=== PATIENT | female | born 1965 | race Hispanic/Latino ===

== ENCOUNTER 2018-02-15 19:24 | Inpatient (IN) | payer OTHER ==
--- NOTE | 2018-02-15 19:45 | Emergency Department Report ---
ED Palpitations HPI - General Chief Complaint: Arrhythmia/Palpitations Stated Complaint: CHEST PAIN Time Seen by Provider: 02/15/18 19:27 Source: patient, EMS (ems notes not available at time of chart dictation), RN notes reviewed Limitations: No Limitations - History of Present Illness Initial Comments: This is a 52-year-old female who is previously known to this provider. Primary care doctor is at [facility]. Past medical history includes anemia, celiac disease , recent history of hypocalcemia, hypokalemia. Patient was sent to the ER from outpatient [facility] for evaluation of resolved wide-complex tachycardia. Patient had been complaining of generalized weakness, fatigue, and feeling lightheaded. At the outpatient facility she was found to be in a wide-complex tachycardia, presumably ventricular tachycardia, and was shocked/cardioverted. Afterwards, she has no symptoms. She currently denies headache, neck pain, chest pain, abdominal pain and shortness of breath. Her EKG currently shows sinus with a right bundle-branch block, which was redemonstrated on prehospital EKG, and her post-cardioversion EKG. The case was discussed with our journeyman pipefitter, Dr. Philip, who indicated he would see the patient as a consult in the morning. Case was also discussed with physician for [facility], Dr. Philip, who authorized admission to this hospital for further evaluation of resolved wide complex tachycardia. MD Complaint: rapid heart beat, "heart racing", "skipped beats", palpitations, irregular heart beat -: Sudden Associated Symptoms: shortness of breath, syncope, near-syncope, nausea/vomiting , anxiety, other. denies: chest pain, cough, parasthesias Treatments Prior to Arrival: cardioversion - Related Data Allergies Allergy/AdvReac Type Severity Reaction Status Date / Time amoxicillin Allergy Anaphylaxis Verified 02/15/18 20:07 clavulanic acid Allergy Shortness Verified 02/15/18 20:07 [From Augmentin] of Breath tetracycline Allergy Rash Verified 02/15/18 20:07 erythromycin base AdvReac Dizziness Verified 02/15/18 20:07 shellfish derived AdvReac Dizziness Verified 02/15/18 20:07 Sulfa (Sulfonamide AdvReac Dizziness Verified 02/15/18 20:07 Antibiotics) ED Review of Systems ROS: Stated complaint: CHEST PAIN Other details as noted in HPI Constitutional: malaise. denies: fever Eyes: denies: eye discharge ENT: denies: epistaxis Respiratory: denies: cough Cardiovascular: palpitations Gastrointestinal: denies: vomiting Genitourinary: denies: dysuria Musculoskeletal: denies: arthralgia Skin: denies: lesions Neurological: weakness Psychiatric: anxiety ED Physical Exam - General General appearance: alert, in no apparent distress - Head Head exam: Present: atraumatic, normocephalic - Eye Eye exam: Present: normal appearance, EOMI. Absent: nystagmus - ENT ENT exam: Present: normal exam, normal orophraynx, mucous membranes moist - Neck Neck exam: Present: normal inspection, full ROM - Respiratory Respiratory exam: Present: normal lung sounds bilaterally. Absent: respiratory distress - Cardiovascular Cardiovascular Exam: Present: regular rate, normal rhythm, systolic murmur. Absent: diastolic murmur, rubs, gallop - GI/Abdominal GI/Abdominal exam: Present: soft, normal bowel sounds. Absent: distended, tenderness, guarding, rebound, rigid, pulsatile mass - Extremities Exam Extremities exam: Present: normal inspection, full ROM, normal capillary refill. Absent: pedal edema, joint swelling, calf tenderness - Back Exam Back exam: Present: normal inspection, full ROM. Absent: tenderness, CVA tenderness (R), paraspinal tenderness, vertebral tenderness - Neurological Exam Neurological exam: Present: alert, oriented X3, CN II-XII intact, other ( Extraocular movements intact. Tongue midline. No facial droop. Facial sensation intact to light touch in the V1, V2, V3 distribution bilaterally. 5 and 5 strength in 4 extremities.. Sensation is intact to light touch in 4 extremities.). Absent: motor sensory deficit - Psychiatric Psychiatric exam: Present: anxious - Skin Skin exam: Present: warm, dry, intact, normal color. Absent: rash ED Course Vital Signs 02/15/18 02/15/18 02/15/18 19:40 19:50 19:53 Temperature 98.1 F Pulse Rate 82 75 74 Respiratory 29 H 18 19 Rate Blood Pressure 93/57 96/53 Blood Pressure [Left] O2 Sat by Pulse 98 98 Oximetry 02/15/18 20:55 Temperature 98 F Pulse Rate 77 Respiratory 24 Rate Blood Pressure Blood Pressure 97/47 [Left] O2 Sat by Pulse 98 Oximetry - Reevaluation(s) Reevaluation #1: 02/15/18 21:37 Dr. Christian accepted the patient to the medical service. ED Medical Decision Making - Lab Data Result diagrams: 02/15/18 19:55 02/15/18 19:55 Vital Signs 02/15/18 02/15/18 02/15/18 19:40 19:50 19:53 Temperature 98.1 F Pulse Rate 82 75 74 Respiratory 29 H 18 19 Rate Blood Pressure 93/57 96/53 O2 Sat by Pulse 98 98 Oximetry Lab Results 02/15/18 02/15/18 02/15/18 Range/Units 19:55 19:55 19:55 WBC 5.0 (4.5-11.0) K/mm3 RBC 3.36 L (3.65-5.03) M/mm3 Hgb 8.1 L (10.1-14.3) gm/dl Hct 27.2 L (30.3-42.9) % MCV 81 (79-97) fl MCH 24 L (28-32) pg MCHC 30 (30-34) % RDW 21.4 H (13.2-15.2) % Plt Count 222 (140-440) K/mm3 Lymph % (Auto) 13.4 (13.4-35.0) % [place] % (Auto) 6.9 (0.0-7.3) % Eos % (Auto) 0.6 (0.0-4.3) % Baso % (Auto) 1.1 (0.0-1.8) % Lymph # 0.7 L (1.2-5.4) K/mm3 [place] # 0.3 (0.0-0.8) K/mm3 Eos # 0.0 (0.0-0.4) K/mm3 Baso # 0.1 (0.0-0.1) K/mm3 Seg Neutrophils % 78.0 H (40.0-70.0) % Seg Neutrophils # 3.9 (1.8-7.7) K/mm3 PT 13.5 (12.2-14.9) Sec. INR 0.98 (0.87-1.13) Sodium 136 L (137-145) mmol/L Potassium 4.6 (3.6-5.0) mmol/L Chloride 105.3 (98-107) mmol/L Carbon Dioxide 20 L (22-30) mmol/L Anion Gap 15 mmol/L BUN 13 (7-17) mg/dL Creatinine 0.4 L (0.7-1.2) mg/dL Estimated GFR > 60 ml/min BUN/Creatinine Ratio 33 % Glucose 104 H (65-100) mg/dL Calcium 8.7 (8.4-10.2) mg/dL Magnesium (1.7-2.3) mg/dL Total Bilirubin 0.20 (0.1-1.2) mg/dL AST 154 H (5-40) units/L ALT 90 H (7-56) units/L Alkaline Phosphatase 127 (35-129) units/L Troponin T (0.00-0.029) ng/mL Total Protein 5.6 L (6.3-8.2) g/dL Albumin 2.9 L (3.9-5) g/dL Albumin/Globulin Ratio 1.1 % TSH (0.270-4.200) mlU/mL Free T4 (0.76-1.46) ng/dL 02/15/18 02/15/18 02/15/18 Range/Units 19:55 19:55 19:55 WBC (4.5-11.0) K/mm3 RBC (3.65-5.03) M/mm3 Hgb (10.1-14.3) gm/dl Hct (30.3-42.9) % MCV (79-97) fl MCH (28-32) pg MCHC (30-34) % RDW (13.2-15.2) % Plt Count (140-440) K/mm3 Lymph % (Auto) (13.4-35.0) % [place] % (Auto) (0.0-7.3) % Eos % (Auto) (0.0-4.3) % Baso % (Auto) (0.0-1.8) % Lymph # (1.2-5.4) K/mm3 [place] # (0.0-0.8) K/mm3 Eos # (0.0-0.4) K/mm3 Baso # (0.0-0.1) K/mm3 Seg Neutrophils % (40.0-70.0) % Seg Neutrophils # (1.8-7.7) K/mm3 PT (12.2-14.9) Sec. INR (0.87-1.13) Sodium (137-145) mmol/L Potassium (3.6-5.0) mmol/L Chloride (98-107) mmol/L Carbon Dioxide (22-30) mmol/L Anion Gap mmol/L BUN (7-17) mg/dL Creatinine (0.7-1.2) mg/dL Estimated GFR ml/min BUN/Creatinine Ratio % Glucose (65-100) mg/dL Calcium (8.4-10.2) mg/dL Magnesium 1.90 (1.7-2.3) mg/dL Total Bilirubin (0.1-1.2) mg/dL AST (5-40) units/L ALT (7-56) units/L Alkaline Phosphatase (35-129) units/L Troponin T < 0.010 (0.00-0.029) ng/mL Total Protein (6.3-8.2) g/dL Albumin (3.9-5) g/dL Albumin/Globulin Ratio % TSH 6.470 H (0.270-4.200) mlU/mL Free T4 0.91 (0.76-1.46) ng/dL - EKG Data -: EKG Interpreted by Me EKG shows normal: sinus rhythm Rate: normal - EKG Data Interpretation: unchanged when compared t (earlier on today) 02/15/18 20:48 Sinus, 72 bpm, left axis deviation, right bundle branch block, QTC prolonged, abnormal EKG, not consistent with a stabbing - Radiology Data Radiology results: image reviewed interpreted by me: X-ray the chest is negative for acute disease - Medical Decision Making Differential diagnosis, including but not limited to: Anemia, acute coronary syndrome, structural cardiac disease, electrolyte derangement, pneumonia, urinary tract infection, thyroid disease Assessment and plan: 52-year-old female with a resolved wide-complex tachycardia. She is afebrile with reassuring vital signs. Patient very slight of stature. Laboratory studies so far unremarkable. Patient will require admission for further evaluation of transient wide-complex tachycardia. Hospital physician is paged to arrange admission. Critical care attestation.: If time is entered above; I have spent that time in minutes in the direct care of this critically ill patient, excluding procedure time. ED Disposition Clinical Impression: Wide-complex tachycardia Disposition: DC-09 OP ADMIT IP TO THIS HOSP Is pt being admited?: Yes Does the pt Need Aspirin: Yes Condition: Good Referrals: PRIMARY CARE, [Primary Care Provider] - 3-5 Days
[2018-02-15 20:15] LABS: Basophils # (Auto) 0.1 K/mm3 (0.0-0.1); Basophils % (Auto) 1.1 % (0.0-1.8); Eosinophils % (Auto) 0.6 % (0.0-4.3); Hematocrit 27.2 % (30.3-42.9); Hemoglobin 8.1 gm/dl (10.1-14.3); Lymphocytes # (Auto) 0.7 K/mm3 (1.2-5.4); Lymphocytes % (Auto) 13.4 % (13.4-35.0); Mean Corpuscular HGB Conc 30 % (30-34); Mean Corpuscular Volume 81 fl (79-97); Monocytes # (Auto) 0.3 K/mm3 (0.0-0.8); Monocytes % (Auto) 6.9 % (0.0-7.3); Platelet Count 222 K/mm3 (140-440); Red Blood Count 3.36 M/mm3 (3.65-5.03)
[2018-02-15 20:17] LABS: INR 0.98 (0.87-1.13)
[2018-02-15 20:20] LABS: Mean Corpuscular Hemoglobin 24 pg (28-32); Red Cell Distribution Width 21.4 % (13.2-15.2)
[2018-02-15 20:21] LABS: Alanine Aminotransferase 90 units/L (7-56); Albumin 2.9 g/dL (3.9-5); BUN/Creatinine Ratio 33; Blood Urea Nitrogen 13 mg/dL (7-17); Calcium 8.7 mg/dL (8.4-10.2); Hemolysis Index 6
[2018-02-15] MEDS ORDERED: BABY ASPIRIN PO ONE (20:50)
--- NOTE | 2018-02-15 21:20 | XRay Report ---
FINAL REPORT EXAM: XR CHEST 1V AP HISTORY: Lightheadedness/Dizziness TECHNIQUE: Single, portable chest x-ray. PRIORS: None. FINDINGS: Mild cardiomegaly and surgical clip projected over AP window. Lungs are hyperinflated, without significant vascular congestion. No focal consolidation or apparent pneumothorax. IMPRESSION: 1. Cardiomegaly. 2. Hyperinflation. No acute consolidation.
[2018-02-15] MEDS ORDERED: NACL 0.9% 500 ML 500 ML IV ONE (21:37)
[2018-02-15 22:28] LABS: Bilirubin,Urine NEG (Negative); Blood,Urine NEG (Negative); Color,Urine Straw (Yellow); Protein,Urine <15 mg/dL mg/dL (Negative); Urobilinogen,Urine < 2.0 mg/dL (<2.0)
[2018-02-15 22:34] LABS: Amphetamine Screen,Urine PRESUMPTIVE NEGATIVE; Cannabinoid Screen,Urine PRESUMPTIVE NEGATIVE; Cocaine Screen,Urine PRESUMPTIVE NEGATIVE; Methadone Screen,Urine PRESUMPTIVE NEGATIVE; Opiate Screen,Urine PRESUMPTIVE NEGATIVE
[2018-02-15 22:46] LABS: Benzodiazepines Screen,Urine PRESUMPTIVE POSITIVE
[2018-02-15] MEDS ORDERED: SODIUM CHLORIDE FLUSH SYRINGE 10 ML IV PRN (22:58)
[2018-02-15] MEDS ORDERED: TYLENOL PO PRN (22:58)
[2018-02-15] MEDS ORDERED: PERCOCET 5/325 PO PRN (22:58)
[2018-02-15] MEDS ORDERED: ZOFRAN IV PRN (22:58)
--- NOTE | 2018-02-15 23:03 | History and Physical Report ---
History of Present Illness Date of examination: 02/15/18 History of present illness: 52-year-old woman with a history of tetralogy of flow status post repair, pulmonary hypertension, pulmonary valve stenosis, celiac disease comes to emergency room for evaluation of dizziness. Patient wanted to go to the restroom, she felt dizzy, she sat down. She attempted to go to the bathroom again, and bathroom she felt dizzy, started having palpitation while in the bathroom, she has to lay on the bathroom floor for about 5 minutes. She got out of the bathroom and her son drove her to the [place] facility, all when she got this year symptoms started again, she was found to be in V. tach and was shocked once. She is transferred from [place] to this emergency room. Admits to associated chest pain while she was having the palpitation Review of systems Constitutional: no weight loss, chills Ears, eyes, nose, mouth and throat: no nasal congestion, no nasal discharge, no sinus pressure, no vision change, no red eye. Neck: No neck pain or rigidity. Cardiovascular: +chest pain, palpitations Respiratory: No cough, shortness of breath Gastrointestinal: no abdominal pain, hematochezia Genitourinary : no dysuria, frequency , no hematuria Musculoskeletal: no joint swelling or muscle ache Integumentary: no rash, no pruritis Neurological: no parathesias, no numbness, no focal weakness Endocrine: no cold or heat intolerance, no polyuria or polydipsia Hematologic/Lymphatic: no easy bruising, no easy bleeding, no gland swelling Allergic/Immunologic: no urticaria, no angioedema. PAST MEDICAL HISTORY: tetralogy of fallot status post repair, pulmonary hypertension, pulmonary valve stenosis, celiac disease PAST SURGICAL HISTORY: Repair of tetralogy of fallot, cholecystectomy SOCIAL HISTORY: Denies alcohol, tobacco, drugs FAMILY HISTORY: Hypertension Medications and Allergies Allergies Allergy/AdvReac Type Severity Reaction Status Date / Time amoxicillin Allergy Anaphylaxis Verified 02/15/18 20:07 clavulanic acid Allergy Shortness Verified 02/15/18 20:07 [From Augmentin] of Breath tetracycline Allergy Rash Verified 02/15/18 20:07 erythromycin base AdvReac Dizziness Verified 02/15/18 20:07 shellfish derived AdvReac Dizziness Verified 02/15/18 20:07 Sulfa (Sulfonamide AdvReac Dizziness Verified 02/15/18 20:07 Antibiotics) Home Medications Medication Instructions Recorded Confirmed Last Taken Type Iron 18 mg PO TID 02/15/18 02/15/18 Unknown History Potassium Chloride [K-Dur] 10 meq PO QDAY 02/15/18 02/15/18 Unknown History Exam - Physical Exam Narrative exam: Gen. appearance: Patient lying in bed, no apparent distress HEENT: Normocephalic, atraumatic, pupils equally round and reactive to light, extraocular movement intact, and no sclericterus,. No JVD or thyromegaly or nodule,neck supple, no carotid bruit ,mucous membranes moist, no exudate or erythema Heart: S1, S2, regular rate and rhythm Lungs: Clear to auscultation bilaterally, breathing comfortable Abdomen: Positive bowel sounds, nontender, nondistended, no organomegaly Extremity: No edema, cyanosis, clubbing Skin: No rash, nodules, warm, dry Neuro: Oriented 3, cranial nerves II-12 intact, speech is fluent, motor and sensory intact - Constitutional Vitals: Temp Pulse Resp BP Pulse Ox 98 F 66 21 96/52 98 02/15/18 20:55 02/15/18 22:06 02/15/18 21:00 02/15/18 22:06 02/15/18 21:00 Results - Labs CBC & Chem 7: 02/15/18 19:55 02/15/18 19:55 Labs: Abnormal lab results 02/15/18 02/15/18 02/15/18 Range/Units 19:55 19:55 19:55 RBC 3.36 L (3.65-5.03) M/mm3 Hgb 8.1 L (10.1-14.3) gm/dl Hct 27.2 L (30.3-42.9) % MCH 24 L (28-32) pg RDW 21.4 H (13.2-15.2) % Lymph # 0.7 L (1.2-5.4) K/mm3 Seg Neutrophils % 78.0 H (40.0-70.0) % Sodium 136 L (137-145) mmol/L Carbon Dioxide 20 L (22-30) mmol/L Creatinine 0.4 L (0.7-1.2) mg/dL Glucose 104 H (65-100) mg/dL AST 154 H (5-40) units/L ALT 90 H (7-56) units/L Total Protein 5.6 L (6.3-8.2) g/dL Albumin 2.9 L (3.9-5) g/dL TSH 6.470 H (0.270-4.200) mlU/mL - Imaging and Cardiology EKG: image reviewed Chest x-ray: image reviewed Assessment and Plan Assessment Ventricular tachycardia History of tetralogy of fallot Pulmonary hypertension Pulmonary valve stenosis Celiac disease Plan Admit to medicine Check cardiac enzymes, echo, consult cardiology DVT prophylaxis
[2018-02-15 23:28] LABS: Creatine Kinase MB 1.9 ng/mL (0.0-4.0)
[2018-02-16 04:22] LABS: BUN/Creatinine Ratio 30; Blood Urea Nitrogen 9 mg/dL (7-17); Calcium 8.4 mg/dL (8.4-10.2); Hemolysis Index 3
[2018-02-16 04:23] LABS: Creatine Kinase MB 1.9 ng/mL (0.0-4.0)
[2018-02-16 04:36] LABS: Basophils % (Auto) 0.6 % (0.0-1.8); Hematocrit 25.2 % (30.3-42.9); Hemoglobin 7.7 gm/dl (10.1-14.3); Lymphocytes % (Auto) 39.1 % (13.4-35.0); Mean Corpuscular HGB Conc 31 % (30-34); Mean Corpuscular Hemoglobin 25 pg (28-32); Mean Corpuscular Volume 81 fl (79-97); Mean Platelet Volume 7.8 fl (6-12); Monocytes % (Auto) 9.4 % (0.0-7.3); Platelet Count 207 K/mm3 (140-440); Red Blood Count 3.12 M/mm3 (3.65-5.03); Red Cell Distribution Width 21.4 % (13.2-15.2)
[2018-02-16 04:37] LABS: Lymphocytes # (Auto) 1.1 K/mm3 (1.2-5.4); Monocytes # (Auto) 0.3 K/mm3 (0.0-0.8)
[2018-02-16] MEDS ORDERED: IRON 18 MG PO SCH (08:00)
[2018-02-16] MEDS ORDERED: NACL 0.9% 500 ML 500 ML IV NR (09:00)
[2018-02-16] MEDS ORDERED: LOVENOX SUB-Q SCH (10:00)
[2018-02-16] MEDS: FERROUS SULFATE PO SCH ×3 (10:28→20:08)
[2018-02-16] MEDS: LOVENOX SUB-Q SCH (11:32)
[2018-02-16] MEDS: SODIUM CHLORIDE FLUSH SYRINGE 10 ML IV SCH (12:28)
--- NOTE | 2018-02-16 14:17 | Progress Note ---
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 hypertension and celiac disease who presented to [facility] with palpitation and lightheadedness. She was found to be in Vtach and underwent either defibillation or cardioversion which she felt the electrical shock. -Vtach s/p shock: await Cardiology evaluation -Hypotension acute on chronic: treat with nss bolus -Moderate malnutrition: consult Almond Pan Finisher -Anemia: continue to monitor cbc Returned a page from [facility] but Dr. [place] was on unavailable, await call back. History Interval history: Patient was seen and examined. Follow-up on current diagnosis. Overnight uneventful. Patient denies any chest pain, shortness breath, nausea/vomiting or severe headaches. Imaging, nursing note, chart, labs and old chart reviewed. Discussed with patient. Hospitalist Physical - Physical exam Narrative exam: GEN: thin frail, NAD, Awake, Alert, Orientated x 3 HEENT: NCAT, EOMI, PERRL, OP Clear NECK: supple, no adenopathy, no thyromegaly, no JVD CVS/HEART: Regular bradycardia, normal S1S2, pulses present bilaterally CHEST/LUNGS: CTA B, Symmetrical chest expansion, good air entry bilaterally GI/Abdomen: soft, NTND, good bowel sounds, no guarding or rebound /Bladder: no suprapubic tenderness, no CVA or paraspinal tenderness EXT/Skin: no c/c/e, no obvious rash MSK: FROM x 4 Neuro: CN 2-12 grossly intact, no new focal deficits Psych: calm - Constitutional Vitals: Temp Pulse Resp BP Pulse Ox 97.7 F 51 L 20 81/42 95 02/16/18 05:55 02/16/18 05:55 02/16/18 05:55 02/16/18 05:55 02/16/18 12:15 Results - Labs CBC & Chem 7: 02/16/18 03:50 02/16/18 03:50 Labs: Laboratory Last Values WBC 2.8 K/mm3 (4.5-11.0) L 02/16/18 03:50 RBC 3.12 M/mm3 (3.65-5.03) L 02/16/18 03:50 Hgb 7.7 gm/dl (10.1-14.3) L 02/16/18 03:50 Hct 25.2 % (30.3-42.9) L 02/16/18 03:50 MCV 81 fl (79-97) 02/16/18 03:50 MCH 25 pg (28-32) L 02/16/18 03:50 MCHC 31 % (30-34) 02/16/18 03:50 RDW 21.4 % (13.2-15.2) H 02/16/18 03:50 Plt Count 207 K/mm3 (140-440) 02/16/18 03:50 Lymph % (Auto) 39.1 % (13.4-35.0) H 02/16/18 03:50 [place] % (Auto) 9.4 % (0.0-7.3) H 02/16/18 03:50 Eos % (Auto) 1.0 % (0.0-4.3) 02/16/18 03:50 Baso % (Auto) 0.6 % (0.0-1.8) 02/16/18 03:50 Lymph # 1.1 K/mm3 (1.2-5.4) L 02/16/18 03:50 [place] # 0.3 K/mm3 (0.0-0.8) 02/16/18 03:50 Eos # 0.0 K/mm3 (0.0-0.4) 02/16/18 03:50 Baso # 0.0 K/mm3 (0.0-0.1) 02/16/18 03:50 Seg Neutrophils % 49.9 % (40.0-70.0) 02/16/18 03:50 Seg Neutrophils # 1.4 K/mm3 (1.8-7.7) L 02/16/18 03:50 PT 13.5 Sec. (12.2-14.9) 02/15/18 19:55 INR 0.98 (0.87-1.13) 02/15/18 19:55 Sodium 139 mmol/L (137-145) 02/16/18 03:50 Potassium 4.0 mmol/L (3.6-5.0) 02/16/18 03:50 Chloride 108.7 mmol/L (98-107) H 02/16/18 03:50 Carbon Dioxide 21 mmol/L (22-30) L 02/16/18 03:50 Anion Gap 13 mmol/L 02/16/18 03:50 BUN 9 mg/dL (7-17) 02/16/18 03:50 Creatinine 0.3 mg/dL (0.7-1.2) L 02/16/18 03:50 Estimated GFR > 60 ml/min 02/16/18 03:50 BUN/Creatinine Ratio 30 % 02/16/18 03:50 Glucose 75 mg/dL (65-100) 02/16/18 03:50 POC Glucose 98 (70-105) 02/15/18 21:06 Calcium 8.4 mg/dL (8.4-10.2) 02/16/18 03:50 Magnesium 1.90 mg/dL (1.7-2.3) 02/15/18 19:55 Total Bilirubin 0.20 mg/dL (0.1-1.2) 02/15/18 19:55 AST 154 units/L (5-40) H 02/15/18 19:55 ALT 90 units/L (7-56) H 02/15/18 19:55 Alkaline Phosphatase 127 units/L (35-129) 02/15/18 19:55 Total Creatine Kinase 57 units/L (30-135) 02/16/18 03:50 CK-MB (CK-2) 1.9 ng/mL (0.0-4.0) 02/16/18 03:50 CK-MB (CK-2) Rel Index 3.3 (0-4) 02/16/18 03:50 Troponin T < 0.010 ng/mL (0.00-0.029) 02/16/18 07:57 Total Protein 5.6 g/dL (6.3-8.2) L 02/15/18 19:55 Albumin 2.9 g/dL (3.9-5) L 02/15/18 19:55 Albumin/Globulin Ratio 1.1 % 02/15/18 19:55 TSH 6.470 mlU/mL (0.270-4.200) H 02/15/18 19:55 Free T4 0.91 ng/dL (0.76-1.46) 02/15/18 19:55 Urine Color Straw (Yellow) 02/15/18 22:15 Urine Turbidity Clear (Clear) 02/15/18 22:15 Urine pH 6.0 (5.0-7.0) 02/15/18 22:15 Ur Specific [place] 1.008 (1.003-1.030) 02/15/18 22:15 Urine Protein <15 mg/dl mg/dL (Negative) 02/15/18 22:15 Urine Glucose (UA) Neg mg/dL (Negative) 02/15/18 22:15 Urine Ketones Neg mg/dL (Negative) 02/15/18 22:15 Urine Blood Neg (Negative) 02/15/18 22:15 Urine Nitrite Neg (Negative) 02/15/18 22:15 Urine Bilirubin Neg (Negative) 02/15/18 22:15 Urine Urobilinogen < 2.0 mg/dL (<2.0) 02/15/18 22:15 Ur Leukocyte Esterase Neg (Negative) 02/15/18 22:15 Urine WBC (Auto) 0.0 /HPF (0.0-6.0) 02/15/18 22:15 Urine RBC (Auto) 4.0 /HPF (0.0-6.0) 02/15/18 22:15 U Epithel Cells (Auto) < 1.0 /HPF (0-13.0) 02/15/18 22:15 Urine Opiates Screen Presumptive negative 02/15/18 22:15 Urine Methadone Screen Presumptive negative 02/15/18 22:15 Ur Barbiturates Screen Presumptive negative 02/15/18 22:15 Ur Phencyclidine Scrn Presumptive negative 02/15/18 22:15 Ur Amphetamines Screen Presumptive negative 02/15/18 22:15 U Benzodiazepines Scrn Presumptive positive 02/15/18 22:15 Urine Cocaine Screen Presumptive negative 02/15/18 22:15 U Marijuana (THC) Screen Presumptive negative 02/15/18 22:15 Drugs of Abuse Note Disclamer 02/15/18 22:15
--- NOTE | 2018-02-16 16:04 | Consultation ---
History of Present Illness Consult date: 02/16/18 Requesting physician: JESSY PRASAD Consult reason: arrhythmia History of present illness: The patient has a history of TOF status post surgical repair at age is 1 and 4 years. She is followed by the [facility] in [place]. While at work yesterday, she walked to the bathroom and suddenly became dizzy with palpitations and presyncope. Symptoms occurred recurrently three times. 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. The patient claims that while getting out of the car, she developed palpitations with presyncope again. Once within the [facility] facility, she was noted to be in rapid wide complex tachycardia with a RBBB morphology and was electrically cardioverted to sinus rhythm. She has not had any recurrent symptoms so far. She denies chest pain. She is significantly anemic but indicates that she has chronic anemia for which receives iron supplements. She also has a history of celiac disease. 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 denies: smoking, alcohol abuse Family history: no significant family history Medications and Allergies Allergies Allergy/AdvReac Type Severity Reaction Status Date / Time amoxicillin Allergy Anaphylaxis Verified 02/15/18 20:07 clavulanic acid Allergy Shortness Verified 02/15/18 20:07 [From Augmentin] of Breath tetracycline Allergy Rash Verified 02/15/18 20:07 erythromycin base AdvReac Dizziness Verified 02/15/18 20:07 shellfish derived AdvReac Dizziness Verified 02/15/18 20:07 Sulfa (Sulfonamide AdvReac Dizziness Verified 02/15/18 20:07 Antibiotics) Gluten Allergy Diarrhea Uncoded 02/16/18 02:36 Home Medications Medication Instructions Recorded Confirmed Last Taken Type Iron 18 mg PO TID 02/15/18 02/15/18 Unknown History Potassium Chloride [K-Dur] 10 meq PO QDAY 02/15/18 02/15/18 Unknown History Active Meds: Active Medications Acetaminophen (Tylenol) 650 mg PO Q4H PRN PRN Reason: Pain MILD(1-3)/Fever >100.5/NUNEZ Enoxaparin Sodium (Lovenox) 40 mg SUB-Q QDAY@1000 [facility] Last Admin: 02/16/18 11:32 Dose: 40 mg Ferrous Sulfate (Ferrous Sulfate) 90 mg PO TID [facility] Last Admin: 02/16/18 10:28 Dose: 90 mg Ondansetron HCl (Zofran) 4 mg IV Q8H PRN PRN Reason: Nausea And Vomiting Oxycodone/Acetaminophen (Percocet 5/325) 1 tab PO Q6H PRN PRN Reason: Pain, Moderate (4-6) Potassium Chloride (K-Dur) 10 meq PO QDAY [facility] Sodium Chloride (Sodium Chloride Flush Syringe 10 Ml) 10 ml IV BID [facility] Last Admin: 02/16/18 12:28 Dose: 10 ml Sodium Chloride (Sodium Chloride Flush Syringe 10 Ml) 10 ml IV PRN PRN PRN Reason: LINE FLUSH Review of Systems Constitutional: no fever, no chills Ears, nose, mouth and throat: no ear pain, no ear discharge, no sore throat Cardiovascular: palpitations, lightheadedness, no chest pain Respiratory: no cough, no hemoptysis, no shortness of breath Gastrointestinal: no abdominal pain, no nausea, no vomiting, no diarrhea, no constipation Genitourinary Female: no dysuria, no urinary frequency Rectal: no pain, no bleeding Musculoskeletal: no neck stiffness, no neck pain, no myalgias Integumentary: no rash, no pruritis Neurological: no parathesias, no numbness, no tingling, no headaches Endocrine: no cold intolerance, no heat intolerance Hematologic/Lymphatic: no easy bruising, no easy bleeding Allergic/Immunologic: no urticaria, no wheezing Physical Examination Vital Signs Last Vital Signs Temp 97.7 F 02/16/18 05:55 Pulse 51 L 02/16/18 05:55 Resp 20 02/16/18 05:55 BP 81/42 02/16/18 05:55 Pulse Ox 95 02/16/18 12:15 General appearance: no acute distress HEENT: Positive: EOMI, Normocephaly, Mucus Membranes Moist Neck: Positive: neck supple, trachea midline Cardiac: Positive: Reg Rate and Rhythm, S1/S2, Systolic Murmur Lungs: Positive: clear to auscultation Neuro: Positive: Grossly Intact Abdomen: Positive: Soft, Active Bowel Sounds. Negative: Tender Skin: Positive: Clear. Negative: Rash Musculoskeletal: Normal Range of Motion Extremities: Present: normal. Absent: edema Results 02/16/18 03:50 02/16/18 03:50 Cardiac Enzymes 02/15/18 02/15/18 02/16/18 Range/Units 19:55 22:52 03:50 AST 154 H (5-40) units/L CK-MB (CK-2) 1.9 1.9 (0.0-4.0) ng/mL Coagulation 02/15/18 Range/Units 19:55 PT 13.5 (12.2-14.9) Sec. INR 0.98 (0.87-1.13) CBC 02/15/18 02/16/18 Range/Units 19:55 03:50 WBC 5.0 2.8 L (4.5-11.0) K/mm3 RBC 3.36 L 3.12 L (3.65-5.03) M/mm3 Hgb 8.1 L 7.7 L (10.1-14.3) gm/dl Hct 27.2 L 25.2 L (30.3-42.9) % Plt Count 222 207 (140-440) K/mm3 Lymph # 0.7 L 1.1 L (1.2-5.4) K/mm3 [place] # 0.3 0.3 (0.0-0.8) K/mm3 Eos # 0.0 0.0 (0.0-0.4) K/mm3 Baso # 0.1 0.0 (0.0-0.1) K/mm3 Comprehensive Metabolic Panel 02/15/18 02/16/18 Range/Units 19:55 03:50 Sodium 136 L 139 (137-145) mmol/L Potassium 4.6 4.0 (3.6-5.0) mmol/L Chloride 105.3 108.7 H (98-107) mmol/L Carbon Dioxide 20 L 21 L (22-30) mmol/L BUN 13 9 (7-17) mg/dL Creatinine 0.4 L 0.3 L (0.7-1.2) mg/dL Glucose 104 H 75 (65-100) mg/dL Calcium 8.7 8.4 (8.4-10.2) mg/dL AST 154 H (5-40) units/L ALT 90 H (7-56) units/L Alkaline Phosphatase 127 (35-129) units/L Total Protein 5.6 L (6.3-8.2) g/dL Albumin 2.9 L (3.9-5) g/dL - Imaging and Cardiology EKG: image reviewed EKG interpretations - Telemetry EKG Rhythm: Sinus Rhythm - EKG Sinus rhythms and dysrhythmias: sinus rhythm AV and intraventricular conduction: right bundle branch block Assessment and Plan With a right bundle branch block morphology wide complex tachycardia which is similar to the morphology of her baseline EKG in sinus rhythm, this may be a supraventricular tachycardia. However, ventricular tachycardia cannot be completely excluded, although one would have expected a left bundle branch block morphology to the arrhythmia. Obtain echocardiogram. She will benefit from beta patrick therapy. However, due to hypotension, I will not initiate for now. I will administer gentle IV hydration. Her anemia also needs to be followed closely. - Patient Problems (1) Wide-complex tachycardia Current Visit: Yes Status: Acute (2) History of tetralogy of Fallot repair Current Visit: Yes Status: Chronic (3) Hypotension Current Visit: Yes Status: Acute Qualifiers: Hypotension type: unspecified hypotension type Qualified Code(s): I95.9 - Hypotension, unspecified (4) Chronic anemia Current Visit: Yes Status: Chronic (5) Celiac disease Current Visit: Yes Status: Chronic
[2018-02-16] MEDS ORDERED: NACL 0.9% 500 ML 500 ML IV SCH (17:00)
[2018-02-16] MEDS: K-DUR PO SCH (18:03)
[2018-02-17] MEDS: FERROUS SULFATE PO SCH ×3 (09:00→21:16)
[2018-02-17 09:10] LABS: Hematocrit 27.7 % (30.3-42.9); Hemoglobin 8.6 gm/dl (10.1-14.3); Mean Platelet Volume 7.3 fl (6-12); Red Blood Count 3.44 M/mm3 (3.65-5.03)
[2018-02-17 09:17] LABS: BUN/Creatinine Ratio 17; Blood Urea Nitrogen 5 mg/dL (7-17); Calcium 8.9 mg/dL (8.4-10.2); Hemolysis Index 4
[2018-02-17] MEDS: K-DUR PO SCH (09:42)
[2018-02-17] MEDS: LOVENOX SUB-Q SCH (09:42)
--- NOTE | 2018-02-17 12:58 | Progress Note ---
Assessment and Plan At this point, with inadequate BP for beta patrick therapy, and relatively low heart rate, ablation may be the best option for her supraventricular tachycardia. Since she has established long-term care with a pool lifeguard in [facility], arrangements will be made with his pool lifeguard to set up the appropriate EP management. - Patient Problems (1) PSVT (paroxysmal supraventricular tachycardia) Current Visit: Yes Status: Acute (2) Wide-complex tachycardia Current Visit: Yes Status: Acute (3) History of tetralogy of Fallot repair Current Visit: Yes Status: Chronic (4) Hypotension Current Visit: Yes Status: Acute Qualifiers: Hypotension type: unspecified hypotension type Qualified Code(s): I95.9 - Hypotension, unspecified (5) Chronic anemia Current Visit: Yes Status: Chronic (6) Celiac disease Current Visit: Yes Status: Chronic Subjective Date of service: 02/17/18 Principal diagnosis: Wide complex Tachycardia, PSVT, h/o TOF repair, Hypotension Interval history: No complaint. Appendectomy. Remains borderline normal. She claims that this is chronic for her. On the monitor, she has frequent periods of sinus bradycardia in the 50s. Objective Vital Signs Temp Pulse Resp BP BP Pulse Ox 02/17/18 10:00 96 02/17/18 07:34 98.2 F 65 20 105/41 97 02/17/18 04:00 50 L 02/17/18 03:27 53 L 18 93/36 96 02/17/18 00:20 98.2 F 59 L 18 112/32 98 02/17/18 00:19 60 97 02/16/18 21:19 97 02/16/18 20:57 98.8 F 02/16/18 20:28 73 92/38 97 - Physical Examination General: No Apparent Distress HEENT: Positive: EOMI, Normocephaly, Mucus Membranes Moist Neck: Positive: neck supple, trachea midline Cardiac: Positive: Reg Rate and Rhythm, S1/S2 Lungs: Positive: clear to auscultation Neuro: Positive: Grossly Intact Abdomen: Positive: Soft, Active Bowel Sounds. Negative: Tender Skin: Positive: Clear. Negative: Rash Musculoskeletal: Normal Range of Motion Extremities: Present: normal. Absent: edema - Labs and Meds CBC 02/17/18 Range/Units 08:54 WBC 1.9 L* (4.5-11.0) K/mm3 RBC 3.44 L (3.65-5.03) M/mm3 Hgb 8.6 L (10.1-14.3) gm/dl Hct 27.7 L (30.3-42.9) % Plt Count 223 (140-440) K/mm3 Comprehensive Metabolic Panel 02/17/18 Range/Units 08:54 Sodium 137 (137-145) mmol/L Potassium 4.1 (3.6-5.0) mmol/L Chloride 107.4 H (98-107) mmol/L Carbon Dioxide 23 (22-30) mmol/L BUN 5 L (7-17) mg/dL Creatinine 0.3 L (0.7-1.2) mg/dL Glucose 117 H (65-100) mg/dL Calcium 8.9 (8.4-10.2) mg/dL - Imaging and Cardiology EKG: image reviewed - Telemetry EKG Rhythm: Sinus Bradycardia - EKG Sinus rhythms and dysrhythmias: sinus rhythm AV and intraventricular conduction: right bundle branch block
--- NOTE | 2018-02-17 14:28 | Progress Note ---
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 hypertension and celiac disease who presented to [facility] with palpitation and lightheadedness. She was found to be in Vtach and underwent either defibillation or cardioversion which she felt the electrical shock. -Vtach s/p shock: await Cardiology evaluation -Hypotension acute on chronic: treat with nss bolus -Moderate malnutrition: consult Regional Project Manager -Anemia: continue to monitor cbc Need EP study and possible ablation. I returned [place] call History Interval history: Patient was seen and examined. Follow-up on current diagnosis. Overnight uneventful. Patient denies any chest pain, shortness breath, nausea/vomiting or severe headaches. Imaging, nursing note, chart, labs and old chart reviewed. Discussed with patient. Hospitalist Physical - Physical exam Narrative exam: GEN: thin frail, NAD, Awake, Alert, Orientated x 3 HEENT: NCAT, EOMI, PERRL, OP Clear NECK: supple, no adenopathy, no thyromegaly, no JVD CVS/HEART: Regular bradycardia, normal S1S2, pulses present bilaterally CHEST/LUNGS: CTA B, Symmetrical chest expansion, good air entry bilaterally GI/Abdomen: soft, NTND, good bowel sounds, no guarding or rebound /Bladder: no suprapubic tenderness, no CVA or paraspinal tenderness EXT/Skin: no c/c/e, no obvious rash MSK: FROM x 4 Neuro: CN 2-12 grossly intact, no new focal deficits Psych: calm - Constitutional Vitals: Temp Pulse Resp BP Pulse Ox 98.2 F 65 20 105/41 96 02/17/18 07:34 02/17/18 07:34 02/17/18 07:34 02/17/18 07:34 02/17/18 10:00 General appearance: Present: no acute distress Results - Labs CBC & Chem 7: 02/17/18 08:54 02/17/18 08:54 Labs: Laboratory Last Values WBC 1.9 K/mm3 (4.5-11.0) L* 02/17/18 08:54 RBC 3.44 M/mm3 (3.65-5.03) L 02/17/18 08:54 Hgb 8.6 gm/dl (10.1-14.3) L 02/17/18 08:54 Hct 27.7 % (30.3-42.9) L 02/17/18 08:54 MCV 81 fl (79-97) 02/17/18 08:54 MCH 25 pg (28-32) L 02/17/18 08:54 MCHC 31 % (30-34) 02/17/18 08:54 RDW 22.0 % (13.2-15.2) H 02/17/18 08:54 Plt Count 223 K/mm3 (140-440) 02/17/18 08:54 Lymph % (Auto) 39.1 % (13.4-35.0) H 02/16/18 03:50 [place] % (Auto) 9.4 % (0.0-7.3) H 02/16/18 03:50 Eos % (Auto) 1.0 % (0.0-4.3) 02/16/18 03:50 Baso % (Auto) 0.6 % (0.0-1.8) 02/16/18 03:50 Lymph # 1.1 K/mm3 (1.2-5.4) L 02/16/18 03:50 [place] # 0.3 K/mm3 (0.0-0.8) 02/16/18 03:50 Eos # 0.0 K/mm3 (0.0-0.4) 02/16/18 03:50 Baso # 0.0 K/mm3 (0.0-0.1) 02/16/18 03:50 Seg Neutrophils % 49.9 % (40.0-70.0) 02/16/18 03:50 Seg Neutrophils # 1.4 K/mm3 (1.8-7.7) L 02/16/18 03:50 PT 13.5 Sec. (12.2-14.9) 02/15/18 19:55 INR 0.98 (0.87-1.13) 02/15/18 19:55 Sodium 137 mmol/L (137-145) 02/17/18 08:54 Potassium 4.1 mmol/L (3.6-5.0) 02/17/18 08:54 Chloride 107.4 mmol/L (98-107) H 02/17/18 08:54 Carbon Dioxide 23 mmol/L (22-30) 02/17/18 08:54 Anion Gap 11 mmol/L 02/17/18 08:54 BUN 5 mg/dL (7-17) L 02/17/18 08:54 Creatinine 0.3 mg/dL (0.7-1.2) L 02/17/18 08:54 Estimated GFR > 60 ml/min 02/17/18 08:54 BUN/Creatinine Ratio 17 % 02/17/18 08:54 Glucose 117 mg/dL (65-100) H 02/17/18 08:54 POC Glucose 98 (70-105) 02/15/18 21:06 Calcium 8.9 mg/dL (8.4-10.2) 02/17/18 08:54 Magnesium 1.90 mg/dL (1.7-2.3) 02/17/18 08:54 Total Bilirubin 0.20 mg/dL (0.1-1.2) 02/15/18 19:55 AST 154 units/L (5-40) H 02/15/18 19:55 ALT 90 units/L (7-56) H 02/15/18 19:55 Alkaline Phosphatase 127 units/L (35-129) 02/15/18 19:55 Total Creatine Kinase 57 units/L (30-135) 02/16/18 03:50 CK-MB (CK-2) 1.9 ng/mL (0.0-4.0) 02/16/18 03:50 CK-MB (CK-2) Rel Index 3.3 (0-4) 02/16/18 03:50 Troponin T < 0.010 ng/mL (0.00-0.029) 02/16/18 07:57 Total Protein 5.6 g/dL (6.3-8.2) L 02/15/18 19:55 Albumin 2.9 g/dL (3.9-5) L 02/15/18 19:55 Albumin/Globulin Ratio 1.1 % 02/15/18 19:55 TSH 6.470 mlU/mL (0.270-4.200) H 02/15/18 19:55 Free T4 0.91 ng/dL (0.76-1.46) 02/15/18 19:55 Urine Color Straw (Yellow) 02/15/18 22:15 Urine Turbidity Clear (Clear) 02/15/18 22:15 Urine pH 6.0 (5.0-7.0) 02/15/18 22:15 Ur Specific [place] 1.008 (1.003-1.030) 02/15/18 22:15 Urine Protein <15 mg/dl mg/dL (Negative) 02/15/18 22:15 Urine Glucose (UA) Neg mg/dL (Negative) 02/15/18 22:15 Urine Ketones Neg mg/dL (Negative) 02/15/18 22:15 Urine Blood Neg (Negative) 02/15/18 22:15 Urine Nitrite Neg (Negative) 02/15/18 22:15 Urine Bilirubin Neg (Negative) 02/15/18 22:15 Urine Urobilinogen < 2.0 mg/dL (<2.0) 02/15/18 22:15 Ur Leukocyte Esterase Neg (Negative) 02/15/18 22:15 Urine WBC (Auto) 0.0 /HPF (0.0-6.0) 02/15/18 22:15 Urine RBC (Auto) 4.0 /HPF (0.0-6.0) 02/15/18 22:15 U Epithel Cells (Auto) < 1.0 /HPF (0-13.0) 02/15/18 22:15 Urine Opiates Screen Presumptive negative 02/15/18 22:15 Urine Methadone Screen Presumptive negative 02/15/18 22:15 Ur Barbiturates Screen Presumptive negative 02/15/18 22:15 Ur Phencyclidine Scrn Presumptive negative 02/15/18 22:15 Ur Amphetamines Screen Presumptive negative 02/15/18 22:15 U Benzodiazepines Scrn Presumptive positive 02/15/18 22:15 Urine Cocaine Screen Presumptive negative 02/15/18 22:15 U Marijuana (THC) Screen Presumptive negative 02/15/18 22:15 Drugs of Abuse Note Disclamer 02/15/18 22:15
[2018-02-17] MEDS: SODIUM CHLORIDE FLUSH SYRINGE 10 ML IV SCH (21:17)
[2018-02-18] MEDS: FERROUS SULFATE PO SCH ×2 (09:00→14:21)
[2018-02-18] MEDS: K-DUR PO SCH (09:42)
[2018-02-18] MEDS: LOVENOX SUB-Q SCH (10:00)
--- NOTE | 2018-02-18 11:25 | Progress Note ---
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 hypertension and celiac disease who presented to [facility] with palpitation and lightheadedness. She was found to be in Vtach and underwent either defibillation or cardioversion which she felt the electrical shock. -Vtach s/p shock: await Cardiology evaluation -Hypotension acute on chronic: treat with nss bolus -Moderate malnutrition: consult Grinder Operator External Tool -Anemia: continue to monitor cbc Need EP study and possible ablation==>outpatient with [place] follow up and Dr. Michael Oconnell direction She mentioned c/o chest pain to blender/braze applicator, Dr. Lima, he ordered stress test, she initially refused this morning due to prior adverse reaction to remote stress testing. D/c once cleared by Cardiology/neg stress I returned [place] call History Interval history: Patient was seen and examined. Follow-up on current diagnosis. Overnight uneventful. Patient denies any chest pain, shortness breath, nausea/vomiting or severe headaches. Imaging, nursing note, chart, labs and old chart reviewed. Discussed with patient. Hospitalist Physical - Physical exam Narrative exam: GEN: thin frail, NAD, Awake, Alert, Orientated x 3 HEENT: NCAT, EOMI, PERRL, OP Clear NECK: supple, no adenopathy, no thyromegaly, no JVD CVS/HEART: Regular bradycardia, normal S1S2, pulses present bilaterally CHEST/LUNGS: CTA B, Symmetrical chest expansion, good air entry bilaterally GI/Abdomen: soft, NTND, good bowel sounds, no guarding or rebound /Bladder: no suprapubic tenderness, no CVA or paraspinal tenderness EXT/Skin: no c/c/e, no obvious rash MSK: FROM x 4 Neuro: CN 2-12 grossly intact, no new focal deficits Psych: calm - Constitutional Vitals: Temp Pulse Resp BP Pulse Ox 98.3 F 59 L 18 95/40 100 02/18/18 00:00 02/18/18 08:33 02/18/18 00:00 02/18/18 08:33 02/18/18 10:00 General appearance: Present: no acute distress Results - Labs CBC & Chem 7: 02/17/18 08:54 02/17/18 08:54 Labs: Laboratory Last Values WBC 1.9 K/mm3 (4.5-11.0) L* 02/17/18 08:54 RBC 3.44 M/mm3 (3.65-5.03) L 02/17/18 08:54 Hgb 8.6 gm/dl (10.1-14.3) L 02/17/18 08:54 Hct 27.7 % (30.3-42.9) L 02/17/18 08:54 MCV 81 fl (79-97) 02/17/18 08:54 MCH 25 pg (28-32) L 02/17/18 08:54 MCHC 31 % (30-34) 02/17/18 08:54 RDW 22.0 % (13.2-15.2) H 02/17/18 08:54 Plt Count 223 K/mm3 (140-440) 02/17/18 08:54 Lymph % (Auto) 39.1 % (13.4-35.0) H 02/16/18 03:50 [place] % (Auto) 9.4 % (0.0-7.3) H 02/16/18 03:50 Eos % (Auto) 1.0 % (0.0-4.3) 02/16/18 03:50 Baso % (Auto) 0.6 % (0.0-1.8) 02/16/18 03:50 Lymph # 1.1 K/mm3 (1.2-5.4) L 02/16/18 03:50 [place] # 0.3 K/mm3 (0.0-0.8) 02/16/18 03:50 Eos # 0.0 K/mm3 (0.0-0.4) 02/16/18 03:50 Baso # 0.0 K/mm3 (0.0-0.1) 02/16/18 03:50 Seg Neutrophils % 49.9 % (40.0-70.0) 02/16/18 03:50 Seg Neutrophils # 1.4 K/mm3 (1.8-7.7) L 02/16/18 03:50 PT 13.5 Sec. (12.2-14.9) 02/15/18 19:55 INR 0.98 (0.87-1.13) 02/15/18 19:55 Sodium 137 mmol/L (137-145) 02/17/18 08:54 Potassium 4.1 mmol/L (3.6-5.0) 02/17/18 08:54 Chloride 107.4 mmol/L (98-107) H 02/17/18 08:54 Carbon Dioxide 23 mmol/L (22-30) 02/17/18 08:54 Anion Gap 11 mmol/L 02/17/18 08:54 BUN 5 mg/dL (7-17) L 02/17/18 08:54 Creatinine 0.3 mg/dL (0.7-1.2) L 02/17/18 08:54 Estimated GFR > 60 ml/min 02/17/18 08:54 BUN/Creatinine Ratio 17 % 02/17/18 08:54 Glucose 117 mg/dL (65-100) H 02/17/18 08:54 POC Glucose 98 (70-105) 02/15/18 21:06 Calcium 8.9 mg/dL (8.4-10.2) 02/17/18 08:54 Magnesium 1.90 mg/dL (1.7-2.3) 02/17/18 08:54 Total Bilirubin 0.20 mg/dL (0.1-1.2) 02/15/18 19:55 AST 154 units/L (5-40) H 02/15/18 19:55 ALT 90 units/L (7-56) H 02/15/18 19:55 Alkaline Phosphatase 127 units/L (35-129) 02/15/18 19:55 Total Creatine Kinase 57 units/L (30-135) 02/16/18 03:50 CK-MB (CK-2) 1.9 ng/mL (0.0-4.0) 02/16/18 03:50 CK-MB (CK-2) Rel Index 3.3 (0-4) 02/16/18 03:50 Troponin T < 0.010 ng/mL (0.00-0.029) 02/16/18 07:57 Total Protein 5.6 g/dL (6.3-8.2) L 02/15/18 19:55 Albumin 2.9 g/dL (3.9-5) L 02/15/18 19:55 Albumin/Globulin Ratio 1.1 % 02/15/18 19:55 TSH 6.470 mlU/mL (0.270-4.200) H 02/15/18 19:55 Free T4 0.91 ng/dL (0.76-1.46) 02/15/18 19:55 Urine Color Straw (Yellow) 02/15/18 22:15 Urine Turbidity Clear (Clear) 02/15/18 22:15 Urine pH 6.0 (5.0-7.0) 02/15/18 22:15 Ur Specific [place] 1.008 (1.003-1.030) 02/15/18 22:15 Urine Protein <15 mg/dl mg/dL (Negative) 02/15/18 22:15 Urine Glucose (UA) Neg mg/dL (Negative) 02/15/18 22:15 Urine Ketones Neg mg/dL (Negative) 02/15/18 22:15 Urine Blood Neg (Negative) 02/15/18 22:15 Urine Nitrite Neg (Negative) 02/15/18 22:15 Urine Bilirubin Neg (Negative) 02/15/18 22:15 Urine Urobilinogen < 2.0 mg/dL (<2.0) 02/15/18 22:15 Ur Leukocyte Esterase Neg (Negative) 02/15/18 22:15 Urine WBC (Auto) 0.0 /HPF (0.0-6.0) 02/15/18 22:15 Urine RBC (Auto) 4.0 /HPF (0.0-6.0) 02/15/18 22:15 U Epithel Cells (Auto) < 1.0 /HPF (0-13.0) 02/15/18 22:15 Urine Opiates Screen Presumptive negative 02/15/18 22:15 Urine Methadone Screen Presumptive negative 02/15/18 22:15 Ur Barbiturates Screen Presumptive negative 02/15/18 22:15 Ur Phencyclidine Scrn Presumptive negative 02/15/18 22:15 Ur Amphetamines Screen Presumptive negative 02/15/18 22:15 U Benzodiazepines Scrn Presumptive positive 02/15/18 22:15 Urine Cocaine Screen Presumptive negative 02/15/18 22:15 U Marijuana (THC) Screen Presumptive negative 02/15/18 22:15 Drugs of Abuse Note Disclamer 02/15/18 22:15
--- NOTE | 2018-02-18 11:26 | Discharge Summary ---
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 hypertension and celiac disease who presented to [facility] with palpitation and lightheadedness. She was found to be in Vtach and underwent either defibillation or cardioversion which she felt the electrical shock. -Vtach s/p shock: await Cardiology evaluation -Hypotension acute on chronic: treat with nss bolus -Moderate malnutrition: consult Insurance Agency Owner -Anemia: continue to monitor cbc Need EP study and possible ablation==>outpatient with [place] follow up and Dr. Michael Oconnell direction She mentioned c/o chest pain to training personnel supervisor, Dr. Lima, he ordered stress test, she initially refused this morning due to prior adverse reaction to remote stress testing. D/c once cleared by Cardiology/neg stress I returned [place] call Disposition: DC-01 TO HOME OR SELFCARE Time spent for discharge: 31 min Core Measure Documentation - Palliative Care Palliative Care/ Comfort Measures: Not Applicable - Core Measures Any of the following diagnoses?: none - VTE Discharge Requirements Deep Vein Thrombosis/Pulmonary Embolism Present on Admission: No Has pt received <5 days of overlap therapy or INR<2.0: No Anticoagulant overlap therapy prescribed at discharge: No Contraindication No Overlap Therapy order at [place]: Not Indicated Exam - Physical Exam Narrative exam: GEN: thin frail, NAD, Awake, Alert, Orientated x 3 HEENT: NCAT, EOMI, PERRL, OP Clear NECK: supple, no adenopathy, no thyromegaly, no JVD CVS/HEART: Regular bradycardia, normal S1S2, pulses present bilaterally CHEST/LUNGS: CTA B, Symmetrical chest expansion, good air entry bilaterally GI/Abdomen: soft, NTND, good bowel sounds, no guarding or rebound /Bladder: no suprapubic tenderness, no CVA or paraspinal tenderness EXT/Skin: no c/c/e, no obvious rash MSK: FROM x 4 Neuro: CN 2-12 grossly intact, no new focal deficits Psych: calm - Constitutional Vitals: Temp Pulse Resp BP Pulse Ox 98.3 F 59 L 18 95/40 100 02/18/18 00:00 02/18/18 08:33 02/18/18 00:00 02/18/18 08:33 02/18/18 10:00 Plan Activity: no driving until cleared by PCP, other (no strenous activity until cleared by Macerator Operator) Follow up with: PRIMARY MD GERARDO [Primary Care Provider] - 3-5 Days
--- NOTE | 2018-02-18 12:35 | Progress Note ---
<RAI CARDOSO - Last Filed: 02/18/18 13:43> Assessment and Plan Assessment: Chest pain, atypical - currently resolved PSVT - s/p shock/cardioversion Wide-complex tachycardia H/o tetralogy of fallot s/p repair Hypotension Neutropenia Anemia Elevated TSH - further eval/management per primary H/o celiac disease Plan: S/p treadmill MPI stress test this AM which was negative for ischemia, EF 53%. Currently stable cardiac status. Pt may discharge home from cardiology standpoint. Consider EP study and possible ablation as OP - pt follows [facility] regularly. Recommend pt follow up with [facility] within 1-2 weeks of hospital discharge. Assessment and plan reviewed with pt at bedside. The patient has been seen in conjunction with Dr. Temple who agrees with the assessment and plan of care. Subjective Date of service: 02/18/18 Principal diagnosis: Wide complex Tachycardia, PSVT, h/o TOF repair, Hypotension Interval history: pt for stress test today, no current cardiac complaints. Tele reviewed - pt maintained NSR and SB (with HR low of 45bpm) overnight, no tachyarrhythmias noted. Objective Last Vital Signs Temp 98.3 F 02/18/18 00:00 Pulse 59 L 02/18/18 08:33 Resp 18 02/18/18 00:00 BP 95/40 02/18/18 08:33 Pulse Ox 100 02/18/18 10:00 - Physical Examination General: No Apparent Distress HEENT: Positive: EOMI, Normocephaly, Mucus Membranes Moist Neck: Positive: neck supple, trachea midline Cardiac: Positive: Reg Rate and Rhythm, S1/S2 Lungs: Positive: clear to auscultation Neuro: Positive: Grossly Intact Abdomen: Positive: Soft, Active Bowel Sounds. Negative: Tender Skin: Positive: Clear. Negative: Rash Musculoskeletal: Normal Range of Motion Extremities: Present: normal. Absent: edema - Imaging and Cardiology EKG: image reviewed - EKG Sinus rhythms and dysrhythmias: sinus rhythm AV and intraventricular conduction: right bundle branch block <NIDHI TEMPLE - Last Filed: 02/18/18 19:07> Assessment and Plan Symptomatic Wide Complex Rhythm Likely SVT Recommend Evaluation with cardiac EP as outpatient Objective Vital Signs Temp Pulse Resp BP BP Pulse Ox 02/18/18 15:17 97.9 F 65 16 96/55 100 02/18/18 12:00 98.4 F 67 16 100/56 97 02/18/18 10:00 100 02/18/18 08:33 59 L 95/40 100 02/18/18 07:15 56 L 02/18/18 05:11 59 L 97 02/18/18 00:00 98.3 F 59 L 18 100/44 97 02/17/18 21:36 98 02/17/18 20:40 98.4 F 65 16 81/48 112/34 98 02/17/18 20:00 67
[2018-02-18 19:57] VITALS: BP 111/49
== END 2018-02-18 21:00 | disposition home or self-care (01) | DRG 309 ==
LOC: ED 19:24 → 4A 22:58
PROVIDERS: ADMIT Internal Medicine; ATTEND Internal Medicine
DX: I47.1 Supraventricular tachycardia (principal); E44.0 Moderate protein-calorie malnutrition; Z68.1 Body mass index [BMI] 19.9 or less, adult; D64.9 Anemia, unspecified; I95.9 Hypotension, unspecified; I27.20 Pulmonary hypertension, unspecified; Z88.0 Allergy status to penicillin; Z88.8 Allergy status to other drugs, medicaments and biological substances; Z88.1 Allergy status to other antibiotic agents; Z91.013 Allergy to seafood; Z82.49 Family history of ischemic heart disease and other diseases of the circulatory system
CPT/HCPCS: 36415; 71045; 78452; 80048; 80053; 80307; 81001; 82550; 82553; 82962; 83735; 84439; 84443; 84484; 85025; 85027; 85610; 93005; 93010; 93017; 93306; 99285; A9502; J1650; J7040